=== PATIENT | male | born 1965 | race Two or more races ===

== ENCOUNTER 2020-06-19 16:41 | Inpatient (IN) | payer BC ==
[~2020-06-19] VITALS: Ht 175.3 cm; Wt 75.0 kg
[2020-06-19] MEDS ORDERED: IOHEXOL-300 100 ML BOTTLE ONE (17:52)
[2020-06-19 18:00] VITALS: BP 118/88
[2020-06-19 18:48] VITALS: BP 142/84
[2020-06-19 19:34] LABS: HEMATOCRIT. 47.4 % (42.0-52.0); HEMOGLOBIN. 16.6 g/dL (14.0-18.0); MEAN CORPUSCULAR HEMOGLOBIN 30.2 pg (28.0-32.0); MEAN CORPUSCULAR VOLUME 86.4 fL (80.0-94.0); MEAN PLATELET VOLUME 6.2 fl (7.4-10.4); PLATELET 260 x1000/uL (130-400); RED BLOOD CELL COUNT 5.49 mill/uL (4.7-6.1); RED CELL DISTRIBUTION WIDTH 14.7 % (11.6-14.6)
[2020-06-19 19:43] LABS: CHLORIDE 97 mEq/L (98-107); INR 1.1; PARTIAL THROMBOPLASTIN TIME 32.8 sec (23.4-31.0); PROTHROMBIN TIME 11.7 sec (9.6-11.0)
[2020-06-19 20:00] VITALS: BP 121/88
[2020-06-19 20:30] VITALS: BP 139/94
[2020-06-19 20:45] LABS: PLATELET ESTIMATE NORMAL
[2020-06-19] MEDS ORDERED: KETOROLAC 15MG/ML VIAL IV PRN (22:15)
[2020-06-19] MEDS ORDERED: ONDANSETRON HCL 4MG/2ML INJ IV PRN (22:15)
[2020-06-19] MEDS ORDERED: ACETAMINOPHEN 325MG TABLET PO PRN (22:15)
[2020-06-19] MEDS ORDERED: IPRATROPIUM/ALBUTEROL 0.5-3(2.5)MG/3ML NEB HHN PRN (22:15)
[2020-06-19] MEDS ORDERED: CLONIDINE 0.1MG TABLET PO PRN (22:15)
[2020-06-19 22:30] VITALS: BP 122/85
[2020-06-20] VITALS (12 sets, daily range): BP systolic 110–131; BP diastolic 75–95
[2020-06-20 07:19] LABS: CHLORIDE 97 mEq/L (98-107)
[2020-06-20 08:01] LABS: HEMATOCRIT. 48.5 % (42.0-52.0); HEMOGLOBIN. 16.8 g/dL (14.0-18.0); MEAN CORPUSCULAR HEMOGLOBIN 29.8 pg (28.0-32.0); MEAN CORPUSCULAR VOLUME 86.3 fL (80.0-94.0); MEAN PLATELET VOLUME 6.7 fl (7.4-10.4); PLATELET 281 x1000/uL (130-400); RED BLOOD CELL COUNT 5.62 mill/uL (4.7-6.1); RED CELL DISTRIBUTION WIDTH 14.6 % (11.6-14.6)
[2020-06-20] MEDS ORDERED: SODIUM BICARBONATE 4% (2.4MEQ) 5ML VIAL IV ONE (08:01)
[2020-06-20] MEDS ORDERED: LIDOCAINE HCL 1% 20ML VIAL (Pyxis) INJ ONE (14:21)
[2020-06-20 20:51] LABS: PLATELET ESTIMATE NORMAL
== END 2020-06-20 18:57 | disposition home or self-care (01) | DRG 189 ==
LOC: RAD 16:41 → 3WST 17:34 → EEVIPCON 17:34
PROVIDERS: ADMIT Hospitalist; ATTEND Hospitalist
PROC: 0W9B3ZX Drainage of Left Pleural Cavity, Percutaneous Approach, Diagnostic (ICD-10-PCS; principal; 2020-06-20)
PROC: 0W9B3ZZ Drainage of Left Pleural Cavity, Percutaneous Approach (ICD-10-PCS; 2020-06-20)
PROC: 0W993ZZ Drainage of Right Pleural Cavity, Percutaneous Approach (ICD-10-PCS; 2020-06-20)
DX: J96.00 Acute respiratory failure, unspecified whether with hypoxia or hypercapnia (principal); C82.90 Follicular lymphoma, unspecified, unspecified site; R18.8 Other ascites; E46 Unspecified protein-calorie malnutrition; J91.8 Pleural effusion in other conditions classified elsewhere; C09.9 Malignant neoplasm of tonsil, unspecified; R68.81 Early satiety; R10.9 Unspecified abdominal pain; R59.0 Localized enlarged lymph nodes; Z92.3 Personal history of irradiation; Z92.21 Personal history of antineoplastic chemotherapy; Z93.1 Gastrostomy status; R59.9 Enlarged lymph nodes, unspecified; Z79.899 Other long term (current) drug therapy
CPT/HCPCS: 32555; 36415; 71045; 71260; 74177; 80053; 82040; 82150; 83615; 84478; 84550; 85025; 88305; J3490; Q9967

== ENCOUNTER → 2020-06-28 | Day surgery (SDC) | payer BC | END | disposition home or self-care (01) | LOC: US 12:50 | PROVIDERS: ATTEND Internal Medicine Critical Care Medicine | DX: J90 Pleural effusion, not elsewhere classified (principal); R18.8 Other ascites; Z79.899 Other long term (current) drug therapy; Z98.890 Other specified postprocedural states | CPT/HCPCS: 71045 ==

== ENCOUNTER 2020-07-03 08:36 | Day surgery (SDC) | payer BC ==
[2020-07-03] VITALS (16 sets, daily range): BP systolic 103–126; BP diastolic 71–87
[~2020-07-03] VITALS: Ht 175.3 cm; Wt 72.6 kg
[2020-07-03] MEDS ORDERED: FENTANYL CITRATE/PF 50MCG/ML 2ML VIAL ONE (10:29)
[2020-07-03] MEDS ORDERED: LIDOCAINE HCL 1% 20ML VIAL (Pyxis) INJ ONE ×2 (10:30→13:40)
[2020-07-03] MEDS ORDERED: SODIUM BICARBONATE 4% (2.4MEQ) 5ML VIAL IV ONE ×2 (10:30→13:40)
[2020-07-03] MEDS ORDERED: FENTANYL CITRATE/PF 50MCG/ML 2ML VIAL IV ONE (11:15)
[2020-07-03 13:36] LABS: CHLORIDE 104 mEq/L (98-107)
[2020-07-03 14:37] LABS: HEMATOCRIT. 51.8 % (42.0-52.0); HEMOGLOBIN. 17.2 g/dL (14.0-18.0); HEPATITIS B SURFACE ANTIGEN NEGATIVE; MEAN CORPUSCULAR HEMOGLOBIN 29.4 pg (28.0-32.0); MEAN CORPUSCULAR VOLUME 88.1 fL (80.0-94.0); MEAN PLATELET VOLUME 7.3 fl (7.4-10.4); PLATELET 311 x1000/uL (130-400); RED BLOOD CELL COUNT 5.87 mill/uL (4.7-6.1); RED CELL DISTRIBUTION WIDTH 15.8 % (11.6-14.6)
[2020-07-03] MEDS ORDERED: ALBUMIN HUMAN 25GM/500ML (5%) IV SCH (14:50)
[2020-07-03 15:07] LABS: HEPATITIS A AB IGM NEGATIVE (NEGATIVE)
[2020-07-03 17:14] LABS: PLATELET ESTIMATE NORMAL
[2020-07-05 08:10] LABS: HIV SCREEN 4G Non Reactive (Non Reactive)
== END 2020-07-03 16:25 | disposition home or self-care (01) ==
LOC: US 08:36
PROVIDERS: ATTEND Internal Medicine Critical Care Medicine
DX: J90 Pleural effusion, not elsewhere classified (principal); C09.9 Malignant neoplasm of tonsil, unspecified; C82.93 Follicular lymphoma, unspecified, intra-abdominal lymph nodes; J96.00 Acute respiratory failure, unspecified whether with hypoxia or hypercapnia; Z85.818 Personal history of malignant neoplasm of other sites of lip, oral cavity, and pharynx; Z92.21 Personal history of antineoplastic chemotherapy; Z92.3 Personal history of irradiation; Z93.1 Gastrostomy status; Z79.899 Other long term (current) drug therapy
CPT/HCPCS: 32555; 36415; 49180; 71045; 76942; 80053; 83615; 85025; 86705; 86709; 86803; 87340; 87389; 88305; 93306; J3010; J3490; P9041